=== PATIENT | male | born 1955 | race Caucasian/White ===

== ENCOUNTER 2023-02-06 11:37 | Outpatient (CLI) | payer MEDICARE | END 2023-02-06 11:38 | disposition home or self-care (01) | LOC: CSHRAD 11:37 | PROVIDERS: ATTEND Family Medicine | DX: M19.072 Primary osteoarthritis, left ankle and foot (principal) ==

== ENCOUNTER 2023-12-18 09:58 | Outpatient (CLI) | payer MEDICARE | END 2023-12-18 09:59 | disposition home or self-care (01) | LOC: CSHMRI 09:58 | PROVIDERS: ATTEND Orthopaedic Surgery Hand Surgery | DX: S66.102A Unspecified injury of flexor muscle, fascia and tendon of right middle finger at wrist and hand level, initial encounter (principal); M25.441 Effusion, right hand ==